=== PATIENT | female | born 1970 | race Caucasian/White ===

== ENCOUNTER 2018-08-27 17:54 | Emergency (ER) | payer MEDICAID ==
--- NOTE | 2018-08-27 18:51 | EDM.PDOC ---
ED HPI GENERAL MEDICAL PROBLEM - General Chief Complaint: Upper Extremity Injury/Pain Stated Complaint: Radha CHAUDHARI Time Seen by Provider: 08/27/18 18:41 Source of Information: Reports: Patient History Limitations: Reports: No Limitations - History of Present Illness INITIAL COMMENTS - FREE TEXT/NARRATIVE: History of present illness: []She complains of left elbow pain for the last 2-3 months. She saw her primary care provider in [place] she was not given a diagnosis or any treatment. She denies any trauma, fevers, chills or numbness or tingling. Review of systems: As per history of present illness and below otherwise all systems reviewed and negative. Past medical history: As per history of present illness and as reviewed below otherwise noncontributory. Surgical history: As per history of present illness and as reviewed below otherwise noncontributory. Social history: No reported history of drug or alcohol abuse. Family history: As per history of present illness and as reviewed below otherwise noncontributory. Physical exam: General: Well developed, well nourished in NAD HEENT: Atraumatic, normocephalic, pupils reactive, negative for conjunctival pallor or scleral icterus, mucous membranes moist, throat clear, neck supple, nontender, trachea midline. Lungs: Clear to auscultation, breath sounds equal bilaterally, chest nontender. Heart: S1S2, regular, negative for clicks, rubs, or JVD. Abdomen: NABS, Soft, nondistended, nontender. Negative for masses or hepatosplenomegaly. Negative for costovertebral tenderness. Pelvis: Stable nontender. Genitourinary: Deferred. Rectal: Deferred. Extremities: Atraumatic, left elbow tender over medial tendons, no effusion of the olecranon bursa, all range of motion, sensation intact. negative for cords or calf pain. Neurovascular unremarkable. Neuro: Awake, alert, oriented. Cranial nerves II through XII unremarkable. Cerebellum unremarkable. Motor and sensory unremarkable throughout. Exam nonfocal. Skin:warm and dry Diagnostics: None Therapeutics: Arm sling ED Course: Unremarkable Impression: Left elbow tendinitis Prescriptions: Diclofenac, Plan: Ice elbow, Take meds as directed, follow up with your primary care physician, return to ER if symptoms worsen or change. Definitive disposition and diagnosis as appropriate pending reevaluation and review of above. 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 ED EXAM, GENERAL - Physical Exam Exam: See Below Course - Vital Signs Last Recorded V/S: Last Vital Signs Temp 97.8 F 08/27/18 18:42 Pulse 81 08/27/18 18:42 Resp 18 08/27/18 18:42 BP 186/98 H 08/27/18 18:42 Pulse Ox 98 08/27/18 18:42 - Orders/Labs/Meds Orders: Active Orders 24 hr Category Date Time Status Splinting [RC] ASDIRECTED Care 08/27/18 18:47 Ordered Departure - Departure Time of Disposition: 18:50 Disposition: Home, Self-Care 01 Condition: Good Clinical Impression: Left elbow tendinitis - Discharge Information *PRESCRIPTION DRUG MONITORING PROGRAM REVIEWED*: No *COPY OF PRESCRIPTION DRUG MONITORING REPORT IN PATIENT MARKY: No Prescriptions: Diclofenac Sodium [Voltaren] 75 mg PO BIDMEALS PRN #20 tab.cr PRN Reason: Pain Referrals: PCP,None [Primary Care Provider] - Additional Instructions: The following information is given to patients seen in the emergency department who are being discharged to home. This information is to outline your options for follow-up care. We provide all patients seen in our emergency department with a follow-up referral. The need for follow-up, as well as the timing and circumstances, are variable depending upon the specifics of your emergency department visit. If you don't have a primary care physician on staff, we will provide you with a referral. We always advise you to contact your personal physician following an emergency department visit to inform them of the circumstance of the visit and for follow-up with them and/or the need for any referrals to a consulting specialist. The emergency department will also refer you to a specialist when appropriate. This referral assures that you have the opportunity for follow-up care with a specialist. All of these measure are taken in an effort to provide you with optimal care, which includes your follow-up. Under all circumstances we always encourage you to contact your private physician who remains a resource for coordinating your care. When calling for follow-up care, please make the office aware that this follow-up is from your recent emergency room visit. If for any reason you are refused follow-up, please contact the [facility] Emergency Department at and asked to speak to the emergency department charge nurse. Take meds as directed, follow up with your primary care physician, return to ER if symptoms worsen or change. [facility] [address] [place] [id number] - My Orders Last 24 Hours: My Active Orders 08/27/18 18:47 Splinting [RC] ASDIRECTED - Assessment/Plan Last 24 Hours: My Active Orders 08/27/18 18:47 Splinting [RC] ASDIRECTED
== END 2018-08-27 19:06 | disposition home or self-care (01) ==
LOC: MW.ED 17:54
DX: M77.9 Enthesopathy, unspecified (principal); I10 Essential (primary) hypertension; E10.9 Type 1 diabetes mellitus without complications; F17.210 Nicotine dependence, cigarettes, uncomplicated; Z88.8 Allergy status to other drugs, medicaments and biological substances; Z79.899 Other long term (current) drug therapy
CPT/HCPCS: 99283

== ENCOUNTER 2019-09-11 05:37 | Emergency (ER) | payer OTHER ==
--- NOTE | 2019-09-11 07:57 | EDM.PDOC ---
ED HPI GENERAL MEDICAL PROBLEM - General Chief Complaint: Respiratory Problem Stated Complaint: PERSISTENT DRY COUGH, NO VOICE, DIABETIC Time Seen by Provider: 09/11/19 05:57 Source of Information: Reports: Patient History Limitations: Reports: No Limitations - History of Present Illness INITIAL COMMENTS - FREE TEXT/NARRATIVE: 48 y/o female presenting to ED for 4 days of cough, nasal congestion and throat discomfort. reported mild dyspnea with the cough. reports that she is a smoker. no cp. no fever. no recent travel. no sick contacts. has no known covid contacts. no LE edema. throat Pain Score (Numeric/FACES): 7 - Related Data Allergies Allergy/AdvReac Type Severity Reaction Status Date / Time meperidine [From Demerol] Allergy Nausea and Verified 09/11/19 05:49 Vomiting Home Meds: Home Meds Insulin Glarg,Human.Rec.Analog [Lantus] 25 units SQ BID 08/27/18 [History] Metoprolol Succinate [Toprol XL] 25 mg PO BID 08/27/18 [History] Lisinopril [Zestril] 5 mg PO BID 09/11/19 [History] Past Medical History HEENT History: Reports: None Cardiovascular History: Reports: Hypertension Respiratory History: Reports: None Gastrointestinal History: Reports: None Genitourinary History: Reports: None 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: 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 History: Reports: None Neurological History: Reports: None Psychiatric History: Reports: None Endocrine/Metabolic History: Reports: Diabetes, Type I Insulin Pump Model and Wood Floor Layer: N/A Hematologic History: Reports: None Immunologic History: Reports: None Oncologic (Cancer) History: Reports: None Dermatologic History: Reports: None - Infectious Disease History Infectious Disease History: Reports: None - Past Surgical History Head Surgeries/Procedures: Reports: None GI Surgical History: Reports: Appendectomy Social & Family History - Family History Family Medical History: Noncontributory - Tobacco Use Smoking Status *Q: Current Every Day Smoker Years of Tobacco use: 30 Packs/Tins Daily: 0.5 - Caffeine Use Caffeine Use: Reports: None - Recreational Drug Use Recreational Drug Use: No ED ROS GENERAL - Review of Systems Review Of Systems: Comprehensive ROS is negative, except as noted in HPI. ED EXAM, GENERAL - Physical Exam Exam: See Below Exam Limited By: No Limitations General Appearance: Alert, No Apparent Distress Ears: Normal External Exam Head: Atraumatic Respiratory/Chest: No Respiratory Distress, Lungs Clear, Normal Breath Sounds Cardiovascular: Regular Rate, Rhythm GI/Abdominal: Soft Extremities: No Pedal Edema Course - Vital Signs Last Recorded V/S: Last Vital Signs Temp 96.7 F L 09/11/19 05:50 Pulse 87 09/11/19 05:50 Resp 20 09/11/19 05:50 BP 139/80 09/11/19 05:50 Pulse Ox 98 09/11/19 05:50 - Re-Assessments/Exams Free Text/Narrative Re-Assessment/Exam: 09/11/19 08:05 cxr negative for infiltrates she is ambulatory in no distress no hd abnormalities does not meet indications for covid testing at this time I educated the patient on quarantine precautions. Gave her return precautions. 09/13/19 07:31 Departure - Departure Time of Disposition: 08:08 Disposition: Home, Self-Care 01 Clinical Impression: Viral URI - Discharge Information Instructions: Viral Respiratory Infection, [id number] Referrals: Lynsey Baptiste HEEL SEAT FITTER [Primary Care Provider] - Forms: ED Department Discharge Additional Instructions: wear a face mask, do not leave your home, do not work, do not come into close contact with others. You can leave home after these three things have happened: You have had no fever for at least 72 hours (that is three full days of no fever without the use medicine that reduces fevers) AND other symptoms have improved (for example, when your cough or shortness of breath have improved) AND at least 7 days have passed since your symptoms first appeared Return to ED if you develop cyanosis, worsening shortness of breath, persistent fever, diziness or any concerns. call your regular physician for phone follow up The following information is given to patients seen in the emergency department who are being discharged to home. This information is to outline your options for follow-up care. We provide all patients seen in our emergency department with a follow-up referral. The need for follow-up, as well as the timing and circumstances, are variable depending upon the specifics of your emergency department visit. If you don't have a primary care physician on staff, we will provide you with a referral. We always advise you to contact your personal physician following an emergency department visit to inform them of the circumstance of the visit and for follow-up with them and/or the need for any referrals to a consulting specialist. The emergency department will also refer you to a specialist when appropriate. This referral assures that you have the opportunity for follow-up care with a specialist. All of these measure are taken in an effort to provide you with optimal care, which includes your follow-up. Under all circumstances we always encourage you to contact your private physician who remains a resource for coordinating your care. When calling for follow-up care, please make the office aware that this follow-up is from your recent emergency room visit. If for any reason you are refused follow-up, please contact the [facility] Emergency Department at and asked to speak to the emergency department charge nurse. Sepsis Event Note - Evaluation Sepsis Screening Result: No Definite Risk - Focused Exam Date Exam was Performed: 09/13/19 Time Exam was Performed: 07:30
--- NOTE | 2019-09-11 08:00 | CR ---
Chest: Frontal view of the chest was obtained. Comparison: No prior chest imaging. Heart size and mediastinum are normal. Lungs are clear with no acute parenchymal change. Bony structures are grossly intact. Impression: 1. Nothing acute is appreciated on frontal chest x-ray. Diagnostic code #1 Study was dictated in MDT
== END 2019-09-11 08:21 | disposition home or self-care (01) ==
LOC: MW.ED 05:37
DX: J06.9 Acute upper respiratory infection, unspecified (principal)
CPT/HCPCS: 71045; 71045-26; 99284-25

== ENCOUNTER 2019-11-15 09:22 | Emergency (ER) | payer OTHER ==
--- NOTE | 2019-11-15 09:31 | EDM.PDOC ---
ED HPI GENERAL MEDICAL PROBLEM - General Chief Complaint: Diabetic Complaint Stated Complaint: BLOOD SUGAR Time Seen by Provider: 11/15/19 09:29 Source of Information: Reports: Patient History Limitations: Reports: No Limitations - History of Present Illness INITIAL COMMENTS - FREE TEXT/NARRATIVE: 48-year-old female with history of type 1 diabetes, hypertension presents with dizziness today. She felt like she wanted to pass out yesterday at work. Symptoms have worsened today. She works at at the [employer] at [employer]. It is a confined space. Today she felt like her blood sugar was erratic. She takes Lantus and Humalog for her diabetes. She also notes a gradual progressive worsening constant, occipital headache since yesterday, currently rated at 3/10. ROS: A 10-point review of systems, other than pertinent positives and negatives as stated per HPI, is otherwise negative PHYSICAL EXAM General: AOx4, GCS = 15, No distress, obese HEENT: dry mucous membrane Neck: supple, no meningismus, no Kernig or Brudzinski Cardiac: S1S2 tachcardia Respiratory: CTAB, no crackles or rales, no wheezing Abdomen: Soft, nontender, no rebound or guarding, nondistended, no pulsatile mass. Back: nontender 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: NVI distally, no deformity Neuro: No focal deficits, CN 2 - 12 WNL. nml gait. NIHSS =0 MEDICAL DECISION MAKING: I reviewed the patients past medical records, lab and radiographic findings. I discussed the case with family members. My differential diagnosis included: Electrolyte abnormality, hypoglycemia, DKA, ICH , CVA, Carbon monoxide poisoning. Onset: Today - Related Data Allergies Allergy/AdvReac Type Severity Reaction Status Date / Time meperidine [From Demerol] Allergy Nausea and Verified 11/15/19 09:29 Vomiting Home Meds: Home Meds Insulin Glarg,Human.Rec.Analog [Lantus] 25 units SQ BID 08/27/18 [History] Metoprolol Succinate [Toprol XL] 25 mg PO BID 08/27/18 [History] lisinopriL [Zestril] 5 mg PO BID 09/11/19 [History] Insulin Lispro [HumaLOG] 7 - 10 units INJECT ASDIRECTED 11/15/19 [History] Losartan [Cozaar] mg PO BID 11/15/19 [History] Past Medical History HEENT History: Reports: None Cardiovascular History: Reports: Hypertension Respiratory History: Reports: None Gastrointestinal History: Reports: None Genitourinary History: Reports: None 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: 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 History: Reports: None Neurological History: Reports: None Psychiatric History: Reports: None Endocrine/Metabolic History: Reports: Diabetes, Type I 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: N/A Hematologic History: Reports: None Immunologic History: Reports: None Oncologic (Cancer) History: Reports: None Dermatologic History: Reports: None - Infectious Disease History Infectious Disease History: Reports: None - Past Surgical History Head Surgeries/Procedures: Reports: None GI Surgical History: Reports: Appendectomy Social & Family History - Family History Family Medical History: Noncontributory - Caffeine Use Caffeine Use: Reports: None ED ROS GENERAL - Review of Systems Review Of Systems: See Below (see dictation) ED EXAM GENERAL NO PERIP PULSE - Physical Exam Exam: See Below (see dictation) EKG INTERPRETATION EKG Interpretation Comments: 99 Bpm, NSR, normal QRS interval, no STEMI. EKG and rhythm strip interpreted by me at 0950 Course - Vital Signs Last Recorded V/S: Last Vital Signs Temp 95.3 F L 11/15/19 09:30 Pulse 114 H 11/15/19 09:30 Resp 17 11/15/19 09:30 BP 138/82 11/15/19 09:30 Pulse Ox 98 11/15/19 09:30 - Orders/Labs/Meds Orders: Active Orders 24 hr Category Date Time Status EKG Documentation Completion [RC] STAT Care 11/15/19 09:47 Active Labs: Laboratory Tests 11/15/19 11/15/19 11/15/19 Range/Units 09:32 09:55 10:48 WBC (4.0-11.0) K/uL RBC (4.30-5.90) M/uL Hgb (12.0-16.0) g/dL Hct (36.0-46.0) % MCV (80.0-98.0) fL MCH (27.0-32.0) pg MCHC (31.0-37.0) g/dL RDW Std Deviation (28.0-62.0) fl RDW Coeff of Loc (11.0-15.0) % Plt Count (150-400) K/uL MPV (7.40-12.00) fL Neut % (Auto) (48.0-80.0) % Lymph % (Auto) (16.0-40.0) % Franklin % (Auto) (0.0-15.0) % Eos % (Auto) (0.0-7.0) % Baso % (Auto) (0.0-1.5) % Neut # (Auto) (1.4-5.7) K/uL Lymph # (Auto) (0.6-2.4) K/uL Franklin # (Auto) (0.0-0.8) K/uL Eos # (Auto) (0.0-0.7) K/uL Baso # (Auto) (0.0-0.1) K/uL Nucleated RBC % /100WBC Nucleated RBCs # K/uL ABG Carboxyhemoglobin (0-15) % Sodium 139 (136-145) mmol/L Potassium 3.9 (3.5-5.1) mmol/L Chloride 104 (98-107) mmol/L Carbon Dioxide 22.6 (21.0-32.0) mmol/L BUN 14 (7.0-18.0) mg/dL Creatinine 0.9 (0.6-1.0) mg/dL Est Cr Clr Drug Dosing 58.94 mL/min Estimated GFR (MDRD) > 60.0 ml/min Glucose 280 H (74-106) mg/dL POC Glucose 279 H (60-110) mg/dL Calcium 8.5 (8.5-10.1) mg/dL Total Bilirubin 0.2 (0.2-1.0) mg/dL AST 49 H (15-37) IU/L ALT 51 (14-63) IU/L Alkaline Phosphatase 62 (46-116) U/L Troponin I (0.000-0.056) ng/mL Total Protein 6.8 (6.4-8.2) g/dL Albumin 2.6 L (3.4-5.0) g/dL Globulin 4.2 H (2.6-4.0) g/dL Albumin/Globulin Ratio 0.6 L (0.9-1.6) Urine Color YELLOW Urine Appearance CLEAR Urine pH 6.0 (5.0-8.0) Ur Specific Thornton 1.025 (1.001-1.035) Urine Protein NEGATIVE (NEGATIVE) mg/dL Urine Glucose (UA) >=1000 (NEGATIVE) mg/dL Urine Ketones NEGATIVE (NEGATIVE) mg/dL Urine Occult Blood LARGE H (NEGATIVE) Urine Nitrite NEGATIVE (NEGATIVE) Urine Bilirubin NEGATIVE (NEGATIVE) Urine Urobilinogen 0.2 (<2.0) EU/dL Ur Leukocyte Esterase NEGATIVE (NEGATIVE) Urine RBC 1-2 (0-2/HPF) Urine WBC 0-2 (0-5/HPF) Ur Epithelial Cells MODERATE (NONE-FEW) Urine Bacteria FEW (NEGATIVE) Urine Mucus LIGHT (NONE-MOD) 11/15/19 11/15/19 11/15/19 Range/Units 10:48 10:48 10:48 WBC 3.92 L (4.0-11.0) K/uL RBC 3.81 L (4.30-5.90) M/uL Hgb 11.9 L (12.0-16.0) g/dL Hct 37.2 (36.0-46.0) % MCV 97.6 (80.0-98.0) fL MCH 31.2 (27.0-32.0) pg MCHC 32.0 (31.0-37.0) g/dL RDW Std Deviation 47.1 (28.0-62.0) fl RDW Coeff of Loc 13 (11.0-15.0) % Plt Count 270 (150-400) K/uL MPV 10.10 (7.40-12.00) fL Neut % (Auto) 47.7 L (48.0-80.0) % Lymph % (Auto) 39.3 (16.0-40.0) % Franklin % (Auto) 7.9 (0.0-15.0) % Eos % (Auto) 4.6 (0.0-7.0) % Baso % (Auto) 0.5 (0.0-1.5) % Neut # (Auto) 1.9 (1.4-5.7) K/uL Lymph # (Auto) 1.5 (0.6-2.4) K/uL Franklin # (Auto) 0.3 (0.0-0.8) K/uL Eos # (Auto) 0.2 (0.0-0.7) K/uL Baso # (Auto) 0.0 (0.0-0.1) K/uL Nucleated RBC % 0.0 /100WBC Nucleated RBCs # 0 K/uL ABG Carboxyhemoglobin 4.9 (0-15) % Sodium (136-145) mmol/L Potassium (3.5-5.1) mmol/L Chloride (98-107) mmol/L Carbon Dioxide (21.0-32.0) mmol/L BUN (7.0-18.0) mg/dL Creatinine (0.6-1.0) mg/dL Est Cr Clr Drug Dosing mL/min Estimated GFR (MDRD) ml/min Glucose (74-106) mg/dL POC Glucose (60-110) mg/dL Calcium (8.5-10.1) mg/dL Total Bilirubin (0.2-1.0) mg/dL AST (15-37) IU/L ALT (14-63) IU/L Alkaline Phosphatase (46-116) U/L Troponin I < 0.050 (0.000-0.056) ng/mL Total Protein (6.4-8.2) g/dL Albumin (3.4-5.0) g/dL Globulin (2.6-4.0) g/dL Albumin/Globulin Ratio (0.9-1.6) Urine Color Urine Appearance Urine pH (5.0-8.0) Ur Specific Thornton (1.001-1.035) Urine Protein (NEGATIVE) mg/dL Urine Glucose (UA) (NEGATIVE) mg/dL Urine Ketones (NEGATIVE) mg/dL Urine Occult Blood (NEGATIVE) Urine Nitrite (NEGATIVE) Urine Bilirubin (NEGATIVE) Urine Urobilinogen (<2.0) EU/dL Ur Leukocyte Esterase (NEGATIVE) Urine RBC (0-2/HPF) Urine WBC (0-5/HPF) Ur Epithelial Cells (NONE-FEW) Urine Bacteria (NEGATIVE) Urine Mucus (NONE-MOD) Meds: Medications Discontinued Medications Generic Name Dose Route Start Last Admin Trade Name Freq PRN Reason Stop Dose Admin Lactated Ringer's 1,000 mls @ 999 mls/hr 11/15/19 09:52 11/15/19 10:31 Ringers, Lactated IV 11/15/19 10:52 999 mls/hr .BOLUS ONE Administration - Re-Assessments/Exams Free Text/Narrative Re-Assessment/Exam: 11/15/19 11:28 After IVF and a prolonged observation period in the ER, the patient improved clinically and is stable for discharge. I performed a repeat examination and the patient has not demonstrated any new abnormal findings. Patient exhibits normal vital signs, her HR is now 102, and she has exhibited a normal gait. I advised the patient to return to the ER for reevaluation if symptoms worsened, and to follow up with their PCP within 2-3 days. Departure - Departure Time of Disposition: 11:29 Disposition: Home, Self-Care 01 Condition: Good Clinical Impression: Hyperglycemia, Dizziness - Discharge Information *PRESCRIPTION DRUG MONITORING PROGRAM REVIEWED*: Not Applicable *COPY OF PRESCRIPTION DRUG MONITORING REPORT IN PATIENT MARKY: Not Applicable Instructions: Hyperglycemia, Dizziness, [id number] Referrals: Lynsey Baptiste MUSEUM HOST/HOSTESS [Primary Care Provider] - Forms: ED Department Discharge Additional Instructions: The following information is given to patients seen in the emergency department who are being discharged to home. This information is to outline your options for follow-up care. We provide all patients seen in our emergency department with a follow-up referral. The need for follow-up, as well as the timing and circumstances, are variable depending upon the specifics of your emergency department visit. If you don't have a primary care physician on staff, we will provide you with a referral. We always advise you to contact your personal physician following an emergency department visit to inform them of the circumstance of the visit and for follow-up with them and/or the need for any referrals to a consulting specialist. The emergency department will also refer you to a specialist when appropriate. This referral assures that you have the opportunity for follow-up care with a specialist. All of these measure are taken in an effort to provide you with optimal care, which includes your follow-up. Under all circumstances we always encourage you to contact your private physician who remains a resource for coordinating your care. When calling for follow-up care, please make the office aware that this follow-up is from your recent emergency room visit. If for any reason you are refused follow-up, please contact the [facility] Emergency Department at and asked to speak to the emergency department charge nurse. [facility] [address] [place] [id number] [facility] [address] [place] [id number] Sepsis Event Note - Focused Exam Vital Signs: Vital Signs Temp Pulse Resp BP Pulse Ox 11/15/19 09:30 95.3 F L 114 H 17 138/82 98 Date Exam was Performed: 11/15/19 Time Exam was Performed: 11:27 - My Orders Last 24 Hours: My Active Orders 11/15/19 09:47 EKG Documentation Completion [RC] STAT - Assessment/Plan Last 24 Hours: My Active Orders 11/15/19 09:47 EKG Documentation Completion [RC] STAT
[2019-11-15] MEDS ORDERED: Lactated Ringers 1,000 ML IV ONE (09:52)
--- NOTE | 2019-11-15 10:18 | CR ---
Chest: 2 views of the chest were obtained. Comparison: Prior chest x-ray of 09/11/19. Heart size and mediastinum are normal. Lungs show no acute parenchymal change. Bony structures are unremarkable. Impression: 1. Nothing acute is appreciated on 2 view chest x-ray. Diagnostic code #1 This report was dictated in MDT
--- NOTE | 2019-11-15 10:40 | CT ---
Head CT Technique: Multiple axial sections through the brain were obtained. Intravenous contrast was not utilized. Comparison: No prior intracranial imaging is available. Findings: Ventricles along with basal cisterns and sulci over the convexities are within normal limits for the patient's age. No abnormal parenchymal densities are seen. No evidence of intracranial hemorrhage. No midline shift or mass-effect is seen. Bone window settings were reviewed. Visualized paranasal sinuses show nothing acute. Minimal opacification of the posterior left mastoid sinus is seen which is most likely chronic. Other visualized paranasal sinuses are clear. No acute calvarial finding is seen. Impression: 1. Minimal mastoid sinus finding. 2. Nothing acute is appreciated on noncontrast head CT exam. Diagnostic code #2 This report was dictated in MDT
[2019-11-15 11:25] LABS: BLOOD UREA NITROGEN,BUN 14 mg/dL (7.0-18.0); CARBON DIOXIDE,CO2 22.6 mmol/L (21.0-32.0); CHLORIDE,CL 104 mmol/L (98-107); GLUCOSE RANDOM 280 mg/dL (74-106); POTASSIUM,K 3.9 mmol/L (3.5-5.1); SODIUM,NA 139 mmol/L (136-145)
== END 2019-11-15 11:47 | disposition home or self-care (01) ==
LOC: MW.ED 09:22
DX: E10.65 Type 1 diabetes mellitus with hyperglycemia (principal); I10 Essential (primary) hypertension; Z88.5 Allergy status to narcotic agent; Z79.899 Other long term (current) drug therapy
CPT/HCPCS: 36415; 70450; 71046; 80053; 81001; 82375; 82962; 84484; 85025; 93005; 96360; 99284; J7120; 99283

== ENCOUNTER 2020-02-22 05:18 | Emergency (ER) | payer OTHER ==
--- NOTE | 2020-02-22 06:03 | EDM.PDOC ---
ED HPI GENERAL MEDICAL PROBLEM - General Chief Complaint: Genitourinary Problem Stated Complaint: UTI Time Seen by Provider: 02/22/20 05:29 - History of Present Illness INITIAL COMMENTS - FREE TEXT/NARRATIVE: 49-year-old female with a history of diabetes who is presenting with dysuria and urinary frequency and suprapubic discomfort over the last few days. She denies back or flank pain she denies fever. She reports persistent symptoms that she needs to urinate but only being able to urinate a few drops. No nausea or vomiting symptoms constant no clear exacerbating or alleviating factors radiation or other associated symptoms. Vaginal Pain Score (Numeric/FACES): 7 - Related Data Allergies Allergy/AdvReac Type Severity Reaction Status Date / Time meperidine [From Demerol] Allergy Nausea and Verified 02/22/20 05:38 Vomiting Home Meds: Home Meds Insulin Glarg,Human.Rec.Analog [Lantus] 25 units SQ BID 08/27/18 [History] Metoprolol Succinate [Toprol XL] 25 mg PO BID 08/27/18 [History] lisinopriL [Zestril] 5 mg PO BID 09/11/19 [History] Insulin Lispro [HumaLOG] 7 - 10 units INJECT ASDIRECTED 11/15/19 [History] Losartan [Cozaar] 25 mg PO BID 11/15/19 [History] cephALEXin [Keflex] 500 mg PO BID 5 Days #10 cap 02/22/20 [Rx] Past Medical History HEENT History: Reports: None Cardiovascular History: Reports: Hypertension Respiratory History: Reports: None Gastrointestinal History: Reports: None Genitourinary History: Reports: None [place]T [place]URNER History: Reports: 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 History: Reports: None Neurological History: Reports: None Psychiatric History: Reports: None Endocrine/Metabolic History: Reports: Diabetes, Type I 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 Hematologic History: Reports: None Immunologic History: Reports: None Oncologic (Cancer) History: Reports: None Dermatologic History: Reports: None - Infectious Disease History Infectious Disease History: Reports: None - Past Surgical History Head Surgeries/Procedures: Reports: None GI Surgical History: Reports: Appendectomy Social & Family History - Family History Family Medical History: Noncontributory - Caffeine Use Caffeine Use: Reports: None - Recreational Drug Use Recreational Drug Use: Yes Drug Use in Last 12 Months: Yes ED ROS GENERAL - Review of Systems Review Of Systems: See Below Free Text/Narrative/Comment: General: No fever. Skin: No rash. Eyes: No vision problems. ENT: No sore throat. Neck: No neck stiffness. Respiratory: No shortness of breath. Cardiac: No chest pain. Gastrointestinal: No nausea, vomiting or abdominal pain. Urinary: Per HPI 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: No myalgias/arthralgias. Neurologic: No headache. ED EXAM, GENERAL - Physical Exam Exam: See Below Free Text/Narrative:: General Appearance: No acute distress, appears comfortable Skin: No rash HEENT: Normocephalic/atraumatic, sclera anicteric, mucous membranes moist Neck: Normal range of motion Chest and Lungs: Bilateral breath sounds, clear to auscultation Cardiovascular: Regular rate and rhythm, no murmur Abdomen: Soft, non-tender Back: Normal 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: No edema or tenderness Neurologic: Awake, alert, no obvious deficits, moving all extremities Psychiatric: Appropriate, cooperative Course - Vital Signs Last Recorded V/S: Last Vital Signs Temp 96.8 F L 02/22/20 05:31 Pulse 81 02/22/20 05:31 Resp 16 02/22/20 05:31 BP 138/81 02/22/20 05:31 Pulse Ox 99 02/22/20 05:31 - Orders/Labs/Meds Labs: Laboratory Tests 02/22/20 02/22/20 Range/Units 05:40 05:40 Urine Color YELLOW Urine Appearance CLOUDY Urine pH 6.0 (5.0-8.0) Ur Specific [place] 1.025 (1.001-1.035) Urine Protein 100 H (NEGATIVE) mg/dL Urine Glucose (UA) NEGATIVE (NEGATIVE) mg/dL Urine Ketones NEGATIVE (NEGATIVE) mg/dL Urine Occult Blood LARGE H (NEGATIVE) Urine Nitrite POSITIVE H (NEGATIVE) Urine Bilirubin NEGATIVE (NEGATIVE) Urine Urobilinogen 0.2 (<2.0) EU/dL Ur Leukocyte Esterase MODERATE H (NEGATIVE) Urine RBC 55-60 (0-2/HPF) Urine WBC 65-70 (0-5/HPF) Ur Epithelial Cells FEW (NONE-FEW) Urine Bacteria FEW (NEGATIVE) Urinalysis Comment Urine HCG, Qual NEGATIVE (NEGATIVE) Departure - Departure Time of Disposition: 06:09 Disposition: Home, Self-Care 01 Condition: Good Clinical Impression: UTI (urinary tract infection) - Discharge Information *PRESCRIPTION DRUG MONITORING PROGRAM REVIEWED*: Not Applicable *COPY OF PRESCRIPTION DRUG MONITORING REPORT IN PATIENT MARKY: Not Applicable Prescriptions: cephALEXin [Keflex] 500 mg PO BID 5 Days #10 cap Instructions: Urinary Tract Infection, Adult, [id number] Referrals: Lynsey Baptiste OFFICE CLERK [Primary Care Provider] - Forms: ED Department Discharge Additional Instructions: Your symptoms should improve within the next 1 to 2 days. Please take your fir st dose of antibiotics at home this evening. Please complete the entire course even if you feel better after 2 days. If your symptoms worsen you develop a fever or any other symptoms of concern you please see your primary care doctor or return to the emergency department. The following information is given to patients seen in the emergency department who are being discharged to home. This information is to outline your options for follow-up care. We provide all patients seen in our emergency department with a follow-up referral. The need for follow-up, as well as the timing and circumstances, are variable depending upon the specifics of your emergency department visit. If you don't have a primary care physician on staff, we will provide you with a referral. We always advise you to contact your personal physician following an emergency department visit to inform them of the circumstance of the visit and for follow-up with them and/or the need for any referrals to a consulting speci alist. The emergency department will also refer you to a specialist when appropriate. This referral assures that you have the opportunity for follow-up care with a specialist. All of these measure are taken in an effort to provide you with optimal care, which includes your follow-up. Under all circumstances we always encourage you to contact your private physician who remains a resource for coordinating your care. When calling for follow-up care, please make the office aware that this follow-up is from your recent emergency room visit. If for any reason you are refused follow-up, please contact the [facility] Emergency Department at and asked to speak to the emergency department charge nurse. Sepsis Event Note (ED) - Evaluation Sepsis Screening Result: No Definite Risk - Focused Exam Vital Signs: Vital Signs Temp Pulse Resp BP Pulse Ox 02/22/20 05:31 96.8 F L 81 16 138/81 99 - Assessment/Plan Assessment:: 49-year-old female presenting with signs and symptoms that seem most consistent with UTI. No findings that would suggest unilateral pathology no findings that would suggest TOA ovarian torsion appendicitis diverticulitis considered but again no unilateral tenderness or laterality to her symptoms. Pyelonephritis considered but no fevers chills or flank pain. Patient attempted to urinate and had only a few drops. We will bladder scan to exclude acute urinary retention given the degree of her discomfort. If urinalysis inconsistent with UTI could consider additional work-up at that time. Patient is not in acute urinary retention on bladder scanning patient does have a significant UTI. She is afebrile her vital signs are normal initial dose of Keflex given here patient discharged with 5 days of Keflex return precautions discussed and understood.
[2020-02-22] MEDS ORDERED: Cephalexin 500 MG Cap PO ONE (06:07)
== END 2020-02-22 06:25 | disposition home or self-care (01) ==
LOC: MW.ED 05:18
DX: N39.0 Urinary tract infection, site not specified (principal); E10.9 Type 1 diabetes mellitus without complications; I10 Essential (primary) hypertension; Z88.6 Allergy status to analgesic agent; Z90.49 Acquired absence of other specified parts of digestive tract
CPT/HCPCS: 81001; 81025; 99283; A9270

== ENCOUNTER 2020-04-04 15:07 | Emergency (ER) | payer OTHER ==
[2020-04-04] MEDS ORDERED: Sodium Chloride 0.9% 2.5 ML Syringe FLUSH PRN (15:16)
[2020-04-04] MEDS ORDERED: Sodium Chloride 0.9% 10 ML SDV IV PRN (15:16)
--- NOTE | 2020-04-04 15:44 | EDM.PDOCBH ---
<Edouard Painter - Last Filed: 04/04/20 20:10> ED HPI GENERAL MEDICAL PROBLEM - General Chief Complaint: Behavioral/Psych Stated Complaint: LOW BLOOD SUGAR Time Seen by Provider: 04/04/20 15:16 Source of Information: Reports: Patient, EMS History Limitations: Reports: No Limitations - History of Present Illness INITIAL COMMENTS - FREE TEXT/NARRATIVE: 49-year-old female with a past medical history of type 1 diabetes mellitus and hypertension presenting with altered mental status. Paramedics responded to her residence. Her significant other and she were reportedly involved in disagreement and she threatened to take insulin to try to kill her self. Her significant other found her unresponsive and called 911. When paramedics arrived, they found the patient unresponsive with a blood glucose level of less than 20 mg/dL. They administered 25 g of dextrose 50% and the patient became awake and alert. It is not known if she took any other medications or substances. Upon arrival to the emergency department, the patient does not oriented to time or event. She does remember threatening to end her life by taking insulin but cannot remember how much she took. She does not remember if she took any other medications or any other substances. She is tearful and endorses suicidal intent at this point. She denies any pain or shortness of breath or any other recent illness. ROS: A 10-point review of systems was negative, except as noted in the HPI (or in the ROS section of this note). Past medical history: Reviewed, no additional pertinent history. Surgical history: Reviewed in system, no additional pertinent history. Social history: Reviewed in system, no additional pertinent history. Family history: Reviewed in system, no additional pertinent history. PHYSICAL EXAM Vital signs reviewed. Nursing notes reviewed. Constitutional: Awake, alert, non-distressed. Head: Normocephalic, atraumatic. Eyes: EOMI, conjunctiva normal, no discharge, no scleral icterus. Ears, Nose, Throat: External ears and nose normal, moist oral mucosa. Cardiovascular: 2+ radial pulse, capillary refill less than 2 seconds. Pulmonary: normal work of breathing, no accessory muscle use. Abdomen/GI: Soft, nontender, nondistended, no guarding or rigidity, no masses. 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: No deformities. Integumentary: Appropriate color for ethnicity, cool, dry, no pallor or jaundice, no rash. Neurologic: Alert, answering questions appropriately, normal speech, no facial droop, moving all extremities well. Psychiatric: Tearful, endorses suicidal intent. - Related Data Allergies Allergy/AdvReac Type Severity Reaction Status Date / Time meperidine [From Demerol] Allergy Nausea and Verified 04/04/20 15:27 Vomiting Home Meds: Home Meds Insulin Glarg,Human.Rec.Analog [Lantus] 25 units SQ BID 08/27/18 [History] Metoprolol Succinate [Toprol XL] 25 mg PO BID 08/27/18 [History] lisinopriL [Zestril] 5 mg PO BID 09/11/19 [History] Insulin Lispro [HumaLOG] 7 - 10 units INJECT ASDIRECTED 11/15/19 [History] Losartan [Cozaar] 25 mg PO BID 11/15/19 [History] Past Medical History HEENT History: Reports: None Cardiovascular History: Reports: Hypertension Respiratory History: Reports: None Gastrointestinal History: Reports: None Genitourinary History: Reports: None MATERIAL HAULER History: Reports: 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 History: Reports: None Neurological History: Reports: None Psychiatric History: Reports: Bipolar, Depression Endocrine/Metabolic History: Reports: Diabetes, Type I Insulin Pump Model and Veterinary Laboratory Diagnostician: N/A Hematologic History: Reports: None Immunologic History: Reports: None Oncologic (Cancer) History: Reports: None Dermatologic History: Reports: None - Infectious Disease History Infectious Disease History: Reports: None - Past Surgical History Head Surgeries/Procedures: Reports: None GI Surgical History: Reports: Appendectomy Social & Family History - Family History Family Medical History: Noncontributory - Tobacco Use Smoking Status *Q: Current Every Day Smoker Years of Tobacco use: 31 Packs/Tins Daily: 1 - Caffeine Use Caffeine Use: Reports: None - Alcohol Use Days Per Week of Alcohol Use: 7 Number of Drinks Per Day: 10 Total Drinks Per Week: 70 - Recreational Drug Use Recreational Drug Use: No ED ROS GENERAL - Review of Systems Review Of Systems: See Below ED EXAM, BEHAVIORAL HEALTH - Physical Exam Exam: See Below EKG INTERPRETATION EKG Interpretation Comments: 12-Lead ECG Interpretation Acquired: 3:45 PM Rhythm: Sinus rhythm Rate: 73 bpm [place]: Normal Intervals: Normal Ectopy: None RV Strain: No obvious RV strain pattern. ST Segments/T-Waves: No notable changes Acute Ischemic Changes: None apparent Interpretation: No STEMI COURSE, BEHAVIORAL HEALTH COMP - Course Discharge vs Psych Eval/Treatment:: Alert and oriented on arrival. BGL dropped to 30 mg/dL shortly after arrival, given 2nd dose of dextrose 50%. Remained awake and alert, given a full meal tray. Labs pertinent for hypokalemia, fluctuating glucose readings. Given 2 g magnesium sulfate, PO potassium. Started on D10-NS infusion for 2nd episode of hypoglycemia. Signed legal hold for suicide attempt. APAP negative. Initial salicylate 2.4 w hich is within reference range. Discussed with [place] Poison Control system - recommended 24 hours of observation for telemetry and frequent glucose checks. Unable to admit here due to staffing. No beds in [facility] or [facility]. Accepted at [facility] in [place], [place]. Would favor air transportation due to significant distance and need for frequent glucose monitoring en route with titration of dextrose infusion, not ideal by extended ground transport (5-6 hours) would also pose significant strain on community 911 ambulance resources. Poison control called back - recommended repeat salicylate level as first check was detectable though within the reference range. Ordered re-check and another BMP. Remained in the ED through the end of my shift awaiting transport arrival. Signed out to Dr. Marin. Departure - Departure Time of Disposition: 18:04 Disposition: DC/Tfer to Acute Hospital 02 Condition: Good Clinical Impression: Suicide attempt - Discharge Information Referrals: Lynsey Baptiste NP [Primary Care Provider] - Forms: ED Department Discharge Critical Care Note - Critical Care Note Total Time (mins): 30 Comments: Critical care time is exclusive of billable procedures and the time to perform these procedures. Critical care time was used to prevent vital system organ failure and deterioration. Critical care time includes bedside management and high-complexity decision making requiring my highest level of mental preparedness and attention. This includes reviewing the patient's chart and prior medical records, ordering and reviewing interpreting laboratory studies and imaging results, interpretation of vital signs and EKG, pulse oximetry, and discussion with the admitting team along with EMS and nursing staff. Critical care for recurrent severe hypoglycemia requiring multiple doses of dextrose by IV, serial and frequent glucose and neurologic status monitoring after suicide attempt. Air medical transport to receiving hospital. Sepsis Event Note (ED) - Evaluation Sepsis Screening Result: No Definite Risk <Tom Marin - Last Filed: 04/04/20 20:27> ED HPI GENERAL MEDICAL PROBLEM - History of Present Illness INITIAL COMMENTS - FREE TEXT/NARRATIVE: 8:26 PM: Flight team at bedside to transfer patient to [facility]. Patient's repeat potassium is significantly improved after supplementation. Patient's repeat salicylate is 1.8 which is trending down and well below the toxic range. Patient does not exhibit any signs or symptoms clinically of acute salicylate toxicity. Patient will not need any further evaluation or treatment for salicylate toxicity at this time. At this time, patient appears to be stable for transfer to [facility] for further inpatient medical clearance prior to psychiatric evaluation. COURSE, BEHAVIORAL HEALTH COMP - Course Vital Signs: Last Vital Signs Temp 97.3 F 04/04/20 19:02 Pulse 86 04/04/20 19:02 Resp 18 04/04/20 19:02 BP 157/86 H 04/04/20 19:02 Pulse Ox 100 04/04/20 19:02 Orders, Labs, Meds: Active Orders 24 hr Category Date Time Status Cardiac Monitoring [RC] . DIRECTED Care 04/04/20 15:16 Active EKG 12 Lead [EKG Documentation Completion] [RC] STAT Care 04/04/20 15:17 Active Involuntary Admission/Hold [RC] ASDIRECTED Care 04/04/20 15:17 Active Pulse Oximetry [RC] ASDIRECTED Care 04/04/20 15:17 Active Suicide Precautions [RC] ASDIRECTED Care 04/04/20 15:16 Active GLUCOSE,POC [POC] Stat Lab 04/04/20 15:18 Ordered Sodium Chloride 0.9% [Normal Saline] Med 04/04/20 15:16 Active 10 ml IV ASDIRECTED PRN Sodium Chloride 0.9% [Saline Flush] Med 04/04/20 15:16 Active 10 ml FLUSH ASDIRECTED PRN Sodium Chloride 0.9% [Saline Flush] Med 04/04/20 15:16 Active 2.5 ml FLUSH ASDIRECTED PRN Sodium Chloride [Sodium Chloride 23.4%] 76.8 meq Med 04/04/20 16:00 Active Dextrose 10% in Water 500 ml IV ASDIRECTED Peripheral IV Insertion Adult [OM.PC] Stat Oth 04/04/20 15:16 Ordered Saline Lock Insert [OM.PC] Stat Oth 04/04/20 15:16 Ordered Medication Orders Sodium Chloride 76.8 meq/ (Dextrose/Water) 519.2 mls @ 62.5 mls/hr IV ASDIRECTED GINETTE Last Admin: 04/04/20 16:15 Dose: 62.5 mls/hr Documented by: PHAM Sodium Chloride (Saline Flush) 10 ml FLUSH ASDIRECTED PRN PRN Reason: Keep Vein Open Last Admin: 04/04/20 16:15 Dose: 10 ml Documented by: Admin: 04/04/20 16:14 Dose: 10 ml Documented by: PHAM Sodium Chloride (Saline Flush) 2.5 ml FLUSH ASDIRECTED PRN PRN Reason: Keep Vein Open Sodium Chloride (Normal Saline) 10 ml IV ASDIRECTED PRN PRN Reason: IV Use Laboratory Tests 04/04/20 04/04/20 04/04/20 Range/Units 15:16 15:50 15:50 WBC 9.05 (4.0-11.0) K/uL RBC 3.77 L (4.30-5.90) M/uL Hgb 12.3 (12.0-16.0) g/dL Hct 37.5 (36.0-46.0) % MCV 99.5 H (80.0-98.0) fL MCH 32.6 H (27.0-32.0) pg MCHC 32.8 (31.0-37.0) g/dL RDW Std Deviation 48.7 (28.0-62.0) fl RDW Coeff of Loc 13 (11.0-15.0) % Plt Count 283 (150-400) K/uL MPV 10.20 (7.40-12.00) fL Neut % (Auto) 70.3 (48.0-80.0) % Lymph % (Auto) 21.0 (16.0-40.0) % [place] % (Auto) 6.9 (0.0-15.0) % Eos % (Auto) 1.5 (0.0-7.0) % Baso % (Auto) 0.3 (0.0-1.5) % Neut # (Auto) 6.4 H (1.4-5.7) K/uL Lymph # (Auto) 1.9 (0.6-2.4) K/uL [place] # (Auto) 0.6 (0.0-0.8) K/uL Eos # (Auto) 0.1 (0.0-0.7) K/uL Baso # (Auto) 0.0 (0.0-0.1) K/uL Nucleated RBC % 0.0 /100WBC Nucleated RBCs # 0 K/uL Sodium 138 (136-145) mmol/L Potassium 2.9 L (3.5-5.1) mmol/L Chloride 103 (98-107) mmol/L Carbon Dioxide 25.3 (21.0-32.0) mmol/L BUN 19 H (7.0-18.0) mg/dL Creatinine 0.9 (0.6-1.0) mg/dL Est Cr Clr Drug Dosing 58.31 mL/min Estimated GFR (MDRD) > 60.0 ml/min Glucose 265 H (74-106) mg/dL POC Glucose (60-110) mg/dL Calcium 8.9 (8.5-10.1) mg/dL Total Bilirubin 0.2 (0.2-1.0) mg/dL AST 53 H (15-37) IU/L ALT 52 (14-63) IU/L Alkaline Phosphatase 60 (46-116) U/L Total Protein 7.1 (6.4-8.2) g/dL Albumin 3.1 L (3.4-5.0) g/dL Globulin 4.0 (2.6-4.0) g/dL Albumin/Globulin Ratio 0.8 L (0.9-1.6) TSH 3rd Generation 2.00 (0.36-3.74) uIU/mL HCG, Qual (NEG) Salicylates 2.4 (0-20) mg/dL Urine Opiates Screen NEGATIVE (NEGATIVE) Ur Oxycodone Screen NEGATIVE (NEGATIVE) Urine Methadone Screen NEGATIVE (NEGATIVE) Acetaminophen <2.0 ug/mL Ur Barbiturates Screen NEGATIVE (NEGATIVE) Ur Phencyclidine Scrn NEGATIVE (NEGATIVE) Ur Amphetamine Screen POSITIVE (NEGATIVE) U Methamphetamines Scrn POSITIVE (NEGATIVE) U Benzodiazepines Scrn NEGATIVE (NEGATIVE) U Cocaine Metab Screen NEGATIVE (NEGATIVE) U Marijuana (THC) Screen NEGATIVE (NEGATIVE) Ethyl Alcohol 24 mg/dL 04/04/20 04/04/20 04/04/20 Range/Units 15:50 16:00 16:25 WBC (4.0-11.0) K/uL RBC (4.30-5.90) M/uL Hgb (12.0-16.0) g/dL Hct (36.0-46.0) % MCV (80.0-98.0) fL MCH (27.0-32.0) pg MCHC (31.0-37.0) g/dL RDW Std Deviation (28.0-62.0) fl RDW Coeff of Loc (11.0-15.0) % Plt Count (150-400) K/uL MPV (7.40-12.00) fL Neut % (Auto) (48.0-80.0) % Lymph % (Auto) (16.0-40.0) % [place] % (Auto) (0.0-15.0) % Eos % (Auto) (0.0-7.0) % Baso % (Auto) (0.0-1.5) % Neut # (Auto) (1.4-5.7) K/uL Lymph # (Auto) (0.6-2.4) K/uL [place] # (Auto) (0.0-0.8) K/uL Eos # (Auto) (0.0-0.7) K/uL Baso # (Auto) (0.0-0.1) K/uL Nucleated RBC % /100WBC Nucleated RBCs # K/uL Sodium (136-145) mmol/L Potassium (3.5-5.1) mmol/L Chloride (98-107) mmol/L Carbon Dioxide (21.0-32.0) mmol/L BUN (7.0-18.0) mg/dL Creatinine (0.6-1.0) mg/dL Est Cr Clr Drug Dosing mL/min Estimated GFR (MDRD) ml/min Glucose (74-106) mg/dL POC Glucose 164 H 86 (60-110) mg/dL Calcium (8.5-10.1) mg/dL Total Bilirubin (0.2-1.0) mg/dL AST (15-37) IU/L ALT (14-63) IU/L Alkaline Phosphatase (46-116) U/L Total Protein (6.4-8.2) g/dL Albumin (3.4-5.0) g/dL Globulin (2.6-4.0) g/dL Albumin/Globulin Ratio (0.9-1.6) TSH 3rd Generation (0.36-3.74) uIU/mL HCG, Qual NEGATIVE (NEG) Salicylates (0-20) mg/dL Urine Opiates Screen (NEGATIVE) Ur Oxycodone Screen (NEGATIVE) Urine Methadone Screen (NEGATIVE) Acetaminophen ug/mL Ur Barbiturates Screen (NEGATIVE) Ur Phencyclidine Scrn (NEGATIVE) Ur Amphetamine Screen (NEGATIVE) U Methamphetamines Scrn (NEGATIVE) U Benzodiazepines Scrn (NEGATIVE) U Cocaine Metab Screen (NEGATIVE) U Marijuana (THC) Screen (NEGATIVE) Ethyl Alcohol mg/dL 04/04/20 04/04/20 04/04/20 Range/Units 16:59 17:32 18:03 WBC (4.0-11.0) K/uL RBC (4.30-5.90) M/uL Hgb (12.0-16.0) g/dL Hct (36.0-46.0) % MCV (80.0-98.0) fL MCH (27.0-32.0) pg MCHC (31.0-37.0) g/dL RDW Std Deviation (28.0-62.0) fl RDW Coeff of Loc (11.0-15.0) % Plt Count (150-400) K/uL MPV (7.40-12.00) fL Neut % (Auto) (48.0-80.0) % Lymph % (Auto) (16.0-40.0) % [place] % (Auto) (0.0-15.0) % Eos % (Auto) (0.0-7.0) % Baso % (Auto) (0.0-1.5) % Neut # (Auto) (1.4-5.7) K/uL Lymph # (Auto) (0.6-2.4) K/uL [place] # (Auto) (0.0-0.8) K/uL Eos # (Auto) (0.0-0.7) K/uL Baso # (Auto) (0.0-0.1) K/uL Nucleated RBC % /100WBC Nucleated RBCs # K/uL Sodium (136-145) mmol/L Potassium (3.5-5.1) mmol/L Chloride (98-107) mmol/L Carbon Dioxide (21.0-32.0) mmol/L BUN (7.0-18.0) mg/dL Creatinine (0.6-1.0) mg/dL Est Cr Clr Drug Dosing mL/min Estimated GFR (MDRD) ml/min Glucose (74-106) mg/dL POC Glucose 130 H 140 H 125 H (60-110) mg/dL Calcium (8.5-10.1) mg/dL Total Bilirubin (0.2-1.0) mg/dL AST (15-37) IU/L ALT (14-63) IU/L Alkaline Phosphatase (46-116) U/L Total Protein (6.4-8.2) g/dL Albumin (3.4-5.0) g/dL Globulin (2.6-4.0) g/dL Albumin/Globulin Ratio (0.9-1.6) TSH 3rd Generation (0.36-3.74) uIU/mL HCG, Qual (NEG) Salicylates (0-20) mg/dL Urine Opiates Screen (NEGATIVE) Ur Oxycodone Screen (NEGATIVE) Urine Methadone Screen (NEGATIVE) Acetaminophen ug/mL Ur Barbiturates Screen (NEGATIVE) Ur Phencyclidine Scrn (NEGATIVE) Ur Amphetamine Screen (NEGATIVE) U Methamphetamines Scrn (NEGATIVE) U Benzodiazepines Scrn (NEGATIVE) U Cocaine Metab Screen (NEGATIVE) U Marijuana (THC) Screen (NEGATIVE) Ethyl Alcohol mg/dL 04/04/20 04/04/20 04/04/20 Range/Units 18:32 19:05 19:28 WBC (4.0-11.0) K/uL RBC (4.30-5.90) M/uL Hgb (12.0-16.0) g/dL Hct (36.0-46.0) % MCV (80.0-98.0) fL MCH (27.0-32.0) pg MCHC (31.0-37.0) g/dL RDW Std Deviation (28.0-62.0) fl RDW Coeff of Loc (11.0-15.0) % Plt Count (150-400) K/uL MPV (7.40-12.00) fL Neut % (Auto) (48.0-80.0) % Lymph % (Auto) (16.0-40.0) % [place] % (Auto) (0.0-15.0) % Eos % (Auto) (0.0-7.0) % Baso % (Auto) (0.0-1.5) % Neut # (Auto) (1.4-5.7) K/uL Lymph # (Auto) (0.6-2.4) K/uL [place] # (Auto) (0.0-0.8) K/uL Eos # (Auto) (0.0-0.7) K/uL Baso # (Auto) (0.0-0.1) K/uL Nucleated RBC % /100WBC Nucleated RBCs # K/uL Sodium (136-145) mmol/L Potassium (3.5-5.1) mmol/L Chloride (98-107) mmol/L Carbon Dioxide (21.0-32.0) mmol/L BUN (7.0-18.0) mg/dL Creatinine (0.6-1.0) mg/dL Est Cr Clr Drug Dosing mL/min Estimated GFR (MDRD) ml/min Glucose (74-106) mg/dL POC Glucose 136 H 140 H 121 H (60-110) mg/dL Calcium (8.5-10.1) mg/dL Total Bilirubin (0.2-1.0) mg/dL AST (15-37) IU/L ALT (14-63) IU/L Alkaline Phosphatase (46-116) U/L Total Protein (6.4-8.2) g/dL Albumin (3.4-5.0) g/dL Globulin (2.6-4.0) g/dL Albumin/Globulin Ratio (0.9-1.6) TSH 3rd Generation (0.36-3.74) uIU/mL HCG, Qual (NEG) Salicylates (0-20) mg/dL Urine Opiates Screen (NEGATIVE) Ur Oxycodone Screen (NEGATIVE) Urine Methadone Screen (NEGATIVE) Acetaminophen ug/mL Ur Barbiturates Screen (NEGATIVE) Ur Phencyclidine Scrn (NEGATIVE) Ur Amphetamine Screen (NEGATIVE) U Methamphetamines Scrn (NEGATIVE) U Benzodiazepines Scrn (NEGATIVE) U Cocaine Metab Screen (NEGATIVE) U Marijuana (THC) Screen (NEGATIVE) Ethyl Alcohol mg/dL 04/04/20 04/04/20 Range/Units 19:30 20:13 WBC (4.0-11.0) K/uL RBC (4.30-5.90) M/uL Hgb (12.0-16.0) g/dL Hct (36.0-46.0) % MCV (80.0-98.0) fL MCH (27.0-32.0) pg MCHC (31.0-37.0) g/dL RDW Std Deviation (28.0-62.0) fl RDW Coeff of Loc (11.0-15.0) % Plt Count (150-400) K/uL MPV (7.40-12.00) fL Neut % (Auto) (48.0-80.0) % Lymph % (Auto) (16.0-40.0) % [place] % (Auto) (0.0-15.0) % Eos % (Auto) (0.0-7.0) % Baso % (Auto) (0.0-1.5) % Neut # (Auto) (1.4-5.7) K/uL Lymph # (Auto) (0.6-2.4) K/uL [place] # (Auto) (0.0-0.8) K/uL Eos # (Auto) (0.0-0.7) K/uL Baso # (Auto) (0.0-0.1) K/uL Nucleated RBC % /100WBC Nucleated RBCs # K/uL Sodium 139 (136-145) mmol/L Potassium 4.5 (3.5-5.1) mmol/L Chloride 105 (98-107) mmol/L Carbon Dioxide 26.0 (21.0-32.0) mmol/L BUN 19 H (7.0-18.0) mg/dL Creatinine 0.8 (0.6-1.0) mg/dL Est Cr Clr Drug Dosing 65.60 mL/min Estimated GFR (MDRD) > 60.0 ml/min Glucose 130 H (74-106) mg/dL POC Glucose 187 H (60-110) mg/dL Calcium 8.8 (8.5-10.1) mg/dL Total Bilirubin (0.2-1.0) mg/dL AST (15-37) IU/L ALT (14-63) IU/L Alkaline Phosphatase (46-116) U/L Total Protein (6.4-8.2) g/dL Albumin (3.4-5.0) g/dL Globulin (2.6-4.0) g/dL Albumin/Globulin Ratio (0.9-1.6) TSH 3rd Generation (0.36-3.74) uIU/mL HCG, Qual (NEG) Salicylates 1.8 (0-20) mg/dL Urine Opiates Screen (NEGATIVE) Ur Oxycodone Screen (NEGATIVE) Urine Methadone Screen (NEGATIVE) Acetaminophen ug/mL Ur Barbiturates Screen (NEGATIVE) Ur Phencyclidine Scrn (NEGATIVE) Ur Amphetamine Screen (NEGATIVE) U Methamphetamines Scrn (NEGATIVE) U Benzodiazepines Scrn (NEGATIVE) U Cocaine Metab Screen (NEGATIVE) U Marijuana (THC) Screen (NEGATIVE) Ethyl Alcohol mg/dL Medications Generic Name Dose Route Start Last Admin Trade Name Freq PRN Reason Stop Dose Admin Sodium Chloride 76.8 meq/ 519.2 mls @ 62.5 mls/hr 04/04/20 16:00 04/04/20 16:15 Dextrose/Water IV 62.5 mls/hr ASDIRECTED GINETTE Administration Sodium Chloride 10 ml 04/04/20 15:16 04/04/20 16:15 Saline Flush FLUSH 10 ml ASDIRECTED PRN Administration Keep Vein Open Sodium Chloride 2.5 ml 04/04/20 15:16 Saline Flush FLUSH ASDIRECTED PRN Keep Vein Open Sodium Chloride 10 ml 04/04/20 15:16 Normal Saline IV ASDIRECTED PRN IV Use Discontinued Medications Generic Name Dose Route Start Last Admin Trade Name Freq PRN Reason Stop Dose Admin Dextrose/Water 50 ml 04/04/20 15:45 04/04/20 15:58 Dextrose 50% In Water IVPUSH 04/04/20 15:46 50 ml ONETIME ONE Administration Dextrose/Water Confirm 04/04/20 15:46 04/04/20 15:58 Dextrose 50% In Water Administered 04/04/20 15:47 Not Given Dose 50 ml .ROUTE .STK-MED ONE Dextrose/Water 1,000 mls @ 125 mls/hr 04/04/20 16:00 Dextrose 10% In Water IV ASDIRECTED GINETTE Magnesium Sulfate 2 gm/ Premix 50 mls @ 50 mls/hr 04/04/20 17:06 04/04/20 17:38 IV 04/04/20 18:05 50 mls/hr ONETIME ONE Administration Nicotine 21 mg 04/04/20 18:13 04/04/20 18:44 Habitrol TRDERM 04/04/20 18:14 21 mg ONETIME ONE Administration Potassium Chloride 60 meq 04/04/20 17:06 04/04/20 17:38 Potassium Chloride PO 04/04/20 17:07 60 meq ONETIME ONE Administration Sepsis Event Note (ED) - Focused Exam Vital Signs: Vital Signs Temp Pulse Resp BP Pulse Ox 04/04/20 19:02 97.3 F 86 18 157/86 H 100 04/04/20 18:30 97.3 F 80 18 156/78 H 97 04/04/20 17:30 97.3 F 65 16 159/80 H 97 04/04/20 17:01 97.3 F 75 16 153/99 H 98 04/04/20 16:05 68 14 134/77 98 04/04/20 16:00 97.3 F 75 16 124/70 95 04/04/20 15:30 97.3 F 61 16 177/90 H 100 04/04/20 15:09 95 F L 77 15 173/95 H 99
[2020-04-04] MEDS ORDERED: 50% Dextrose in Water 50 ML Syringe IVPUSH ONE (15:45)
[2020-04-04] MEDS ORDERED: 50% Dextrose in Water 50 ML Syringe ONE (15:46)
[2020-04-04] MEDS ORDERED: Dextrose 10% in Water 1,000 ML IV SCH (16:00)
[2020-04-04] MEDS ORDERED: WATER IV SCH ×2 (16:00)
[2020-04-04] MEDS ORDERED: DEXTROSE 10% IV SCH ×2 (16:00)
[2020-04-04] MEDS ORDERED: Sodium Chloride 23.4% 154 MEQ in Dextrose 10% in Water 1,000 ML IV SCH ×2 (16:00)
[2020-04-04] MEDS ORDERED: SODIUM CHLORIDE IV SCH ×2 (16:00)
[2020-04-04] MEDS: Sodium Chloride 0.9% 10 ML Syringe FLUSH PRN ×2 (16:14→16:15)
[2020-04-04 16:39] LABS: ACETAMINOPHEN <2.0 ug/mL; BLOOD UREA NITROGEN,BUN 19 mg/dL (7.0-18.0); CARBON DIOXIDE,CO2 25.3 mmol/L (21.0-32.0); CHLORIDE,CL 103 mmol/L (98-107); GLUCOSE RANDOM 265 mg/dL (74-106); POTASSIUM,K 2.9 mmol/L (3.5-5.1); SODIUM,NA 138 mmol/L (136-145)
[2020-04-04] MEDS ORDERED: Magnesium Sulfate/Water 2 GM in Premix Bag 1 BAG IV ONE (17:06)
[2020-04-04] MEDS ORDERED: Potassium Chloride 10% 20 MEQ/15 ML Soln 30 ML UD Cup PO ONE (17:06)
[2020-04-04] MEDS ORDERED: Nicotine 21 MG/24 Hr Patch TRDERM ONE (18:13)
[2020-04-04 20:00] LABS: BLOOD UREA NITROGEN,BUN 19 mg/dL (7.0-18.0); CHLORIDE,CL 105 mmol/L (98-107); GLUCOSE RANDOM 130 mg/dL (74-106); POTASSIUM,K 4.5 mmol/L (3.5-5.1); SODIUM,NA 139 mmol/L (136-145)
== END 2020-04-04 20:18 ==
LOC: MW.ED 15:07
DX: T38.3X2A Poisoning by insulin and oral hypoglycemic [antidiabetic] drugs, intentional self-harm, initial encounter (principal); I10 Essential (primary) hypertension; E10.9 Type 1 diabetes mellitus without complications; F17.210 Nicotine dependence, cigarettes, uncomplicated; Z88.8 Allergy status to other drugs, medicaments and biological substances
CPT/HCPCS: 36415; 80048; 80053; 80305; 80307; 82962; 84443; 84703; 85025; 93005; 96361; 96365; 96366; 96375; 99285; A9270; J3475; J7131; 99284; 99291

== ENCOUNTER 2020-04-19 08:21 | Emergency (ER) | payer OTHER ==
[2020-04-19] MEDS ORDERED: Ibuprofen 800 MG Tab PO ONE (08:47)
--- NOTE | 2020-04-19 09:00 | EDM.PDOC ---
ED HPI GENERAL MEDICAL PROBLEM - General Chief Complaint: Upper Extremity Injury/Pain Stated Complaint: PAIN IN LEFT HAND Time Seen by Provider: 04/19/20 08:21 Source of Information: Reports: Patient - History of Present Illness INITIAL COMMENTS - FREE TEXT/NARRATIVE: History of present illness: Patient is a 49-year-old female who presents today for pain to the left wrist radiating to her hand and her elbow. Patient patient woke this morning with chest pain. Patient had this pain for the past number take Motrin for it. Patient cannot take Motrin this morning. Patient that she uses her hand and wrist a lot at work. Patient denies any injuries to the hand or wrist. Patient denies any numbness. Patient denies any other complaints. Past medical history: As per history of present illness and as reviewed below otherwise noncontributory. Surgical history: As per history of present illness and as reviewed below otherwise noncontributory. Social history: No reported history of drug or alcohol abuse. Family history: As per history of present illness and as reviewed below otherwise noncontributory. Plan: 49 female presents today for left wrist pain radiating to the hand and elbow with a tingling sensation no numbness. Patient has good range of motion on exam. Will obtain x-rays provide pain control. Patient likely has carpal tunnel rule out any other injuries. While waiting for x-rays patient had to leave to help her boyfriend as he stuck any gas money. Patient AMA and understand risk for leave AMA. Definitive disposition and diagnosis as appropriate pending reevaluation and review of above. Onset: Today, Gradual Left hand Pain Score (Numeric/FACES): 6 - Related Data Allergies Allergy/AdvReac Type Severity Reaction Status Date / Time meperidine [From Demerol] Allergy Nausea and Verified 04/19/20 08:31 Vomiting Home Meds: Home Meds Insulin Glarg,Human.Rec.Analog [Lantus] 25 units SQ BID 08/27/18 [History] Metoprolol Succinate [Toprol XL] 25 mg PO BID 08/27/18 [History] Insulin Lispro [HumaLOG] 7 - 10 units INJECT ASDIRECTED 11/15/19 [History] Past Medical History HEENT History: Reports: None Cardiovascular History: Reports: Hypertension Respiratory History: Reports: None Gastrointestinal History: Reports: None Genitourinary History: Reports: None INTEGRATION ENGINEER History: Reports: 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 History: Reports: None Neurological History: Reports: None Psychiatric History: Reports: Bipolar, Depression Endocrine/Metabolic History: Reports: Diabetes, Type I Insulin Pump Model and Digital Manager: N/A Hematologic History: Reports: None Immunologic History: Reports: None Oncologic (Cancer) History: Reports: None Dermatologic History: Reports: None - Infectious Disease History Infectious Disease History: Reports: None - Past Surgical History Head Surgeries/Procedures: Reports: None GI Surgical History: Reports: Appendectomy Female Surgical History: Reports: Section Social & Family History - Family History Family Medical History: Noncontributory - Caffeine Use Caffeine Use: Reports: None - Recreational Drug Use Recreational Drug Use: No Review of Systems - Review of Systems Review Of Systems: See Below Constitutional: Reports: No Symptoms Eyes: Reports: No Symptoms Ears: Reports: No Symptoms Nose: Reports: No Symptoms Mouth/Throat: Reports: No Symptoms Respiratory: Reports: No Symptoms Cardiovascular: Reports: No Symptoms GI/Abdominal: Reports: No Symptoms Genitourinary: Reports: No Symptoms 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: Reports: Hand Pain Skin: Reports: No Symptoms Neurological: Reports: Tingling Psychiatric: Reports: No Symptoms ED EXAM, GENERAL - Physical Exam Exam: See Below Exam Limited By: No Limitations General Appearance: Alert, WD/WN Respiratory/Chest: No Respiratory Distress Cardiovascular: Regular Rate, Rhythm Peripheral Pulses: 2+: Radial (L), Radial (R) Extremities: Normal Range of Motion. No: Joint Swelling Neurological: Alert, Oriented, Normal Cognition, Normal Gait Course - Vital Signs Last Recorded V/S: Last Vital Signs Temp 97.9 F 04/19/20 08:32 Pulse 97 04/19/20 08:32 Resp 18 04/19/20 08:32 BP 128/87 04/19/20 08:32 Pulse Ox 99 04/19/20 08:32 - Orders/Labs/Meds Orders: Active Orders 24 hr Category Date Time Status Hand Comp Min 3V Bi [CR] Stat Exams 04/19/20 08:46 Taken Wrist Comp Min 3V Lt [CR] Stat Exams 04/19/20 08:47 Taken Meds: Medications Discontinued Medications Generic Name Dose Route Start Last Admin Trade Name Freq PRN Reason Stop Dose Admin Ibuprofen 800 mg 04/19/20 08:47 04/19/20 09:03 Motrin PO 04/19/20 08:48 800 mg ONETIME ONE Administration Departure - Departure Time of Disposition: 09:44 Disposition: Against Medical Advice 07 Condition: Good Clinical Impression: Carpal tunnel syndrome - Discharge Information *PRESCRIPTION DRUG MONITORING PROGRAM REVIEWED*: Not Applicable *COPY OF PRESCRIPTION DRUG MONITORING REPORT IN PATIENT MARKY: Not Applicable Referrals: Lynsey Baptiste CHECK OUT CASHIER [Primary Care Provider] - Forms: ED Department Discharge, ED Return to Work/School Form Sepsis Event Note (ED) - Evaluation Sepsis Screening Result: No Definite Risk - Focused Exam Vital Signs: Vital Signs Temp Pulse Resp BP Pulse Ox 04/19/20 08:32 97.9 F 97 18 128/87 99 - My Orders Last 24 Hours: My Active Orders 04/19/20 08:46 Hand Comp Min 3V Bi [CR] Stat 04/19/20 08:47 Wrist Comp Min 3V Lt [CR] Stat - Assessment/Plan Last 24 Hours: My Active Orders 04/19/20 08:46 Hand Comp Min 3V Bi [CR] Stat 04/19/20 08:47 Wrist Comp Min 3V Lt [CR] Stat
--- NOTE | 2020-04-19 09:49 | CR ---
Indication: Pain without injury. Technique: Three views each of each hand were acquired. In addition, three views of the left wrist were acquired Comparison: None Findings: Bone mineral density is normal. There is no lytic or blastic lesion, fracture or dislocation identified. The soft tissues are radiographically normal. No abnormal calcifications. No periarticular demineralization. No visible arthritic finding Impression: Normal plain film examination of both hands and of the left wrist Dictated by Asher Huang MD @ Apr 19 2020 9:48AM Signed by Dr. Asher Huang @ Apr 19 2020 9:48AM
--- NOTE | 2020-04-19 09:49 | CR ---
Indication: Pain without injury. Technique: Three views each of each hand were acquired. In addition, three views of the left wrist were acquired Comparison: None Findings: Bone mineral density is normal. There is no lytic or blastic lesion, fracture or dislocation identified. The soft tissues are radiographically normal. No abnormal calcifications. No periarticular demineralization. No visible arthritic finding Impression: Normal plain film examination of both hands and of the left wrist Dictated by Asher Huang MD @ Apr 19 2020 9:44AM Signed by Dr. Asher Huang @ Apr 19 2020 9:48AM
== END 2020-04-19 09:28 | disposition left against medical advice (07) ==
LOC: MW.ED 08:21
DX: G56.02 Carpal tunnel syndrome, left upper limb (principal); E10.9 Type 1 diabetes mellitus without complications; Z88.5 Allergy status to narcotic agent; Z79.899 Other long term (current) drug therapy
CPT/HCPCS: 73110; 73130; 99283; A9270; 99282